=== PATIENT | female | born 1930 | race African-American/Black ===

== ENCOUNTER 2017-06-16 16:06 | Inpatient (IN) | payer MEDICARE, MEDICAID ==
[~2017-06-16] VITALS: Ht 160 cm; Wt 53.1 kg
[2017-06-16 18:08] LABS: BASOPHILS % 0.4 % (0.0-2.0); EOSINOPHILS % 1.8 % (0.0-5.0); LYMPHOCYTES % 28.4 % (20.0-50.0); MEAN CORPUSCULAR HEMOGLOBIN 21.1 pg (28.0-32.0); MEAN CORPUSCULAR VOLUME 67.4 fL (81.0-99.0); MEAN PLATELET VOLUME 7.2 fl (7.4-10.4); MONOCYTES % 5.2 % (2.0-8.0); NEUTROPHILS % 64.2 % (40.0-76.0); PLATELET 399 x1000/uL (130-400); RED BLOOD CELL COUNT 2.49 mill/uL (4.2-5.4); RED CELL DISTRIBUTION WIDTH 17.8 % (11.6-14.6)
[2017-06-16 18:14] LABS: CHLORIDE 111 mEq/L (98-107)
[2017-06-16 18:15] LABS: PROTHROMBIN TIME 10.9 sec (9.4-11.6)
[2017-06-16 18:17] LABS: HEMOGLOBIN. 5.3 g/dL (12.0-16.0)
[2017-06-16 18:18] LABS: HEMATOCRIT. 16.8 % (36.0-48.0)
[2017-06-16 18:22] LABS: CARBON DIOXIDE 22 mEq/L (21-32)
[2017-06-16] MEDS ORDERED: SODIUM CHLORIDE 0.9% 500 ML IV ONE (18:50)
[2017-06-16 18:57] LABS: PLATELET ESTIMATE NORMAL
[2017-06-16] MEDS ORDERED: CLONIDINE 0.1MG TABLET PO PRN (19:45)
[2017-06-16] MEDS ORDERED: ONDANSETRON HCL 4MG/2ML VIAL IV PRN (19:45)
[2017-06-16] MEDS ORDERED: DIPHENHYDRAMINE 50MG/ML VIAL IV PRN (19:45)
[2017-06-16] MEDS ORDERED: GUAIFENESIN 200MG/10ML SUGAR FREE UDC PO PRN (19:45)
[2017-06-16] MEDS ORDERED: MAGNESIUM/ALUMINUM HYDROXIDE/SIMETHICONE 30ML UDC PO PRN (19:45)
[2017-06-16] MEDS ORDERED: ACETAMINOPHEN 325MG TABLET PO PRN (19:45)
[2017-06-16] MEDS ORDERED: IPRATROPIUM/ALBUTEROL 0.5-3(2.5)MG/3ML NEB INH PRN (19:45)
[2017-06-16 20:31] LABS: TOTAL IRON BINDING CAPACITY 488 ug/dL (250-450)
[2017-06-16 21:11] LABS: VITAMIN B12 SERUM 367 pg/mL (211-911)
[2017-06-17] VITALS (9 sets, daily range): BP systolic 108–147; BP diastolic 58–74
[2017-06-17] MEDS ORDERED: SODIUM CHLORIDE 0.9% 1,000 ML IV SCH (01:50)
[2017-06-17] MEDS ORDERED: DONE5TAB7 PO (03:46)
[2017-06-17] MEDS ORDERED: ALLO100T PO (03:46)
[2017-06-17] MEDS ORDERED: BENA20TA3 PO (03:52)
[2017-06-17] MEDS ORDERED: FURO40TA5 PO (03:52)
[2017-06-17] MEDS ORDERED: FLOV44 IH (03:52)
[2017-06-17] MEDS ORDERED: FE300LUD PO (03:52)
[2017-06-17] MEDS ORDERED: CYPR4TAB33 PO (03:52)
[2017-06-17] MEDS ORDERED: FLUT15.88 NS (03:52)
[2017-06-17] MEDS ORDERED: METO-396 PO (03:57)
[2017-06-17] MEDS ORDERED: MELA3TAB PO (03:57)
[2017-06-17] MEDS ORDERED: ACET-2178 PO (03:57)
[2017-06-17] MEDS ORDERED: MULT-1146 PO (03:57)
[2017-06-17] MEDS ORDERED: MIRT30TA PO (03:57)
[2017-06-17] MEDS: IPRATROPIUM/ALBUTEROL 0.5-3(2.5)MG/3ML NEB HHN SCH ×3 (08:08→20:18)
[2017-06-17] MEDS: BUDESONIDE 0.5MG/2ML NEB HHN SCH ×2 (08:08→20:18)
[2017-06-17] MEDS: FUROSEMIDE 40MG TABLET PO SCH (11:26)
[2017-06-17] MEDS: MULTIVITAMINS,THER W-MINERALS TABLET PO SCH (11:26)
[2017-06-17] MEDS: METOPROLOL TARTRATE 25MG TABLET PO SCH ×2 (11:26→21:56)
[2017-06-17] MEDS: FLUTICASONE PROPIONATE 50MCG/SPRAY BOTTLE BOTHNSTRLS SCH (11:27)
[2017-06-17] MEDS ORDERED: LORAZEPAM 2MG/ML CPJ IV PRN (14:45)
[2017-06-17] MEDS ORDERED: CYANOCOBALAMIN 1000MCG/ML VIAL IM SCH (15:30)
[2017-06-17] MEDS: IRON SUCROSE COMPLEX 100 MG/5 ML ML IV SCH (16:35)
[2017-06-17 16:47] LABS: BASOPHILS % 0.6 % (0.0-2.0); EOSINOPHILS % 1.7 % (0.0-5.0); HEMATOCRIT. 24.1 % (36.0-48.0); HEMOGLOBIN. 7.9 g/dL (12.0-16.0); LYMPHOCYTES % 18.6 % (20.0-50.0); MEAN CORPUSCULAR HEMOGLOBIN 24.3 pg (28.0-32.0); MEAN PLATELET VOLUME 7.1 fl (7.4-10.4); MONOCYTES % 7.8 % (2.0-8.0); NEUTROPHILS % 71.3 % (40.0-76.0); PLATELET 257 x1000/uL (130-400); RED BLOOD CELL COUNT 3.26 mill/uL (4.2-5.4)
[2017-06-17] MEDS: SORBITOL 70% SOLN 30ML PO SCH (21:57)
[2017-06-17] MEDS: MIRTAZAPINE 30MG TABLET PO SCH (21:57)
[2017-06-18 00:49] VITALS: BP 160/77
[2017-06-18] MEDS: IPRATROPIUM/ALBUTEROL 0.5-3(2.5)MG/3ML NEB HHN SCH ×3 (02:53→13:05)
[2017-06-18 04:34] VITALS: BP 166/58
[2017-06-18] MEDS: SORBITOL 70% SOLN 30ML PO SCH (06:34)
[2017-06-18] MEDS ORDERED: NA PHOS,M-B/NA PHOS,DI-BA ENEMA 118ML PR NR (08:00)
[2017-06-18 09:00] VITALS: BP 145/68
[2017-06-18] MEDS: METOPROLOL TARTRATE 25MG TABLET PO SCH ×2 (09:00→20:57)
[2017-06-18] MEDS: FUROSEMIDE 40MG TABLET PO SCH (09:00)
[2017-06-18] MEDS: MULTIVITAMINS,THER W-MINERALS TABLET PO SCH (09:00)
[2017-06-18] MEDS: BUDESONIDE 0.5MG/2ML NEB HHN SCH (09:13)
[2017-06-18] MEDS ORDERED: SODIUM CHLORIDE 0.9% 10ML VIAL ONE (11:32)
[2017-06-18] MEDS ORDERED: SIMETHICONE 40 MG/0.6 ML 30ML ONE (11:32)
[2017-06-18 12:10] VITALS: BP 111/63
[2017-06-18] MEDS ORDERED: MIDAZOLAM HCL 5 MG/5 ML VIAL ONE (12:43)
[2017-06-18] MEDS ORDERED: FENTANYL CITRATE/PF 50MCG/ML 2ML VIAL ONE (12:43)
[2017-06-18] MEDS: IRON SUCROSE COMPLEX 100 MG/5 ML ML IV SCH (16:27)
[2017-06-18 17:26] VITALS: BP 138/64
[2017-06-18] MEDS: FLUTICASONE PROPIONATE 50MCG/SPRAY BOTTLE BOTHNSTRLS SCH (18:23)
[2017-06-18 20:30] VITALS: BP 144/71
[2017-06-18] MEDS: MIRTAZAPINE 30MG TABLET PO SCH (20:57)
[2017-06-19 00:18] VITALS: BP 146/73
[2017-06-19] MEDS: IPRATROPIUM/ALBUTEROL 0.5-3(2.5)MG/3ML NEB HHN SCH ×4 (01:39→14:52)
[2017-06-19 04:00] VITALS: BP 144/87
[2017-06-19 08:10] VITALS: BP 150/80
[2017-06-19] MEDS: BUDESONIDE 0.5MG/2ML NEB HHN SCH (08:43)
[2017-06-19] MEDS: METOPROLOL TARTRATE 25MG TABLET PO SCH (09:19)
[2017-06-19] MEDS: MULTIVITAMINS,THER W-MINERALS TABLET PO SCH (09:19)
[2017-06-19] MEDS: FLUTICASONE PROPIONATE 50MCG/SPRAY BOTTLE BOTHNSTRLS SCH (09:19)
[2017-06-19] MEDS: FUROSEMIDE 40MG TABLET PO SCH (09:19)
[2017-06-19 12:10] VITALS: BP 125/94
[2017-06-19 16:45] VITALS: BP 125/89
[2017-06-19 17:05] VITALS: BP 114/54
== END 2017-06-19 17:40 | DRG 811 ==
LOC: ER 16:50 → 6WST 18:57 → EDBEDREQSVC 19:12 → EDBEDREQ 19:12 → ENRESERV 21:05
PROVIDERS: ADMIT Internal Medicine; ATTEND Internal Medicine
PROC: 30233N1 Transfusion of Nonautologous Red Blood Cells into Peripheral Vein, Percutaneous Approach (ICD-10-PCS; 2017-06-16)
PROC: 0DB68ZX Excision of Stomach, Via Natural or Artificial Opening Endoscopic, Diagnostic (ICD-10-PCS; 2017-06-18)
PROC: 0DJD8ZZ Inspection of Lower Intestinal Tract, Via Natural or Artificial Opening Endoscopic (ICD-10-PCS; principal; 2017-06-18 10:00)
DX: D50.9 Iron deficiency anemia, unspecified (principal); G93.41 Metabolic encephalopathy; E46 Unspecified protein-calorie malnutrition; I48.91 Unspecified atrial fibrillation; I11.0 Hypertensive heart disease with heart failure; J44.9 Chronic obstructive pulmonary disease, unspecified; I50.9 Heart failure, unspecified; F03.90 Unspecified dementia, unspecified severity, without behavioral disturbance, psychotic disturbance, mood disturbance, and anxiety; I42.9 Cardiomyopathy, unspecified; K29.70 Gastritis, unspecified, without bleeding; K44.9 Diaphragmatic hernia without obstruction or gangrene; M10.9 Gout, unspecified; K64.8 Other hemorrhoids; Z88.0 Allergy status to penicillin; Z88.2 Allergy status to sulfonamides; Z72.89 Other problems related to lifestyle; Z68.20 Body mass index [BMI] 20.0-20.9, adult
CPT/HCPCS: 36415; 36430; 71010; 80053; 82270; 82607; 83540; 83550; 83605; 85025; 85610; 86850; 86900; 86920; 87040; 87086; 88305; 88312; 88313; 93005; 93970; 94640; 99285; A4216; A6261; C1893; J1200; J2060; J2250; J3010; J3420; J7030; J7040; J7050; J7620; J7626; P9016; A4315